=== PATIENT | female | born 1960 | race Caucasian/White ===

== ENCOUNTER 2021-12-30 17:28 | Emergency (ER) | payer OTHER ==
[~2021-12-30] VITALS: Ht 154.9 cm; Wt 65.0 kg
[2021-12-30 17:48] VITALS: BP 161/90
== END 2021-12-30 19:35 | disposition left against medical advice (07) ==
LOC: EMS 17:32
DX: I10 Essential (primary) hypertension (principal); Z53.21 Procedure and treatment not carried out due to patient leaving prior to being seen by health care provider

== ENCOUNTER 2022-05-30 13:48 | Emergency (ER) | payer OTHER ==
[~2022-05-30] VITALS: Ht 154.9 cm; Wt 59.1 kg
[2022-05-30] MEDS ORDERED: LOSA-381 PO (13:56)
[2022-05-30] MEDS ORDERED: ATOR40TA71 PO (14:28)
[2022-05-30] MEDS ORDERED: BUPR-113 PO (14:28)
[2022-05-30] MEDS ORDERED: AMLO10TA55 PO (14:28)
[2022-05-30] MEDS ORDERED: LOSA-382 PO (14:28)
[2022-05-30] MEDS ORDERED: ACETAMINOPHEN 500 MG TABLET PO ONE (14:30)
[2022-05-30 16:42] VITALS: BP 110/65
== END 2022-05-30 17:39 | disposition home or self-care (01) ==
LOC: EMS 13:50
DX: M79.651 Pain in right thigh (principal); I10 Essential (primary) hypertension; Z79.899 Other long term (current) drug therapy
CPT/HCPCS: 73502; 73552; 93971; 99284